=== PATIENT | female | born 1995 | race Caucasian/White ===

== ENCOUNTER 2016-07-14 14:35 | Emergency (ER) | payer OTHER ==
--- NOTE | 2016-07-14 15:21 | RAD ---
RIGHT FINGER 3 VIEWS HISTORY: Finger slammed in door. COMPARISONS: None. TECHNIQUE: Frontal, lateral, and oblique views of the right finger. ALIGNMENT: Grossly unremarkable. FRACTURE: No displaced acute fracture. SOFT TISSUES: Grossly unremarkable. RADIOOPAQUE FOREIGN BODY: None. IMPRESSION: No gross malalignment or displaced acute fracture noted.
[2016-07-14] MEDS ORDERED: IBUPROFEN 600 MG TABLET ONE (16:16)
[2016-07-14] MEDS ORDERED: ACETAMINOPHEN 325 MG TABLET ONE (16:16)
== END 2016-07-14 16:34 | disposition home or self-care (01) ==
LOC: ED 14:35
DX: S60.031A Contusion of right middle finger without damage to nail, initial encounter (principal); W23.0XXA Caught, crushed, jammed, or pinched between moving objects, initial encounter; Y92.9 Unspecified place or not applicable
CPT/HCPCS: 73140; 99283 ×2; A9270 ×2